=== PATIENT | female | born 1995 | race African-American/Black ===

== ENCOUNTER 2024-04-18 15:33 | Emergency (ER) | payer MEDICAID ==
[~2024-04-18] VITALS: Ht 162.6 cm; Wt 61.2 kg
[2024-04-18 15:34] VITALS: BP 157/75; TEMP 98.1
[2024-04-18] MEDS ORDERED: FLUORESCEIN SODIUM OPHTH 1 EA STRIP ONE (18:39)
[2024-04-18] MEDS ORDERED: TETRAcaine 5 ML BOTTLE ONE (18:39)
[2024-04-18] MEDS: FLUORESCEIN SODIUM OPHTH 1 EA STRIP OP ONE (18:40)
[2024-04-18] MEDS: TETRACAINE HCL 0.5% OPHTALMIC 15 ML BOTTLE EACHEYE ONE (18:40)
[2024-04-18 18:57] VITALS: O2SAT 99
== END 2024-04-18 18:58 | disposition home or self-care (01) ==
LOC: ER 15:38
DX: H57.13 Ocular pain, bilateral (principal)